=== PATIENT | female | born 1945 | race Caucasian/White ===

== ENCOUNTER → 2018-02-05 | Outpatient (CLI) | payer MEDICARE, OTHER ==
[~2018-02-05] MED LIST: ABAT250V; ABAT250V PO; DIGOXIN0.25 MG/5 PO; ESOM20 PO; HYDR1TAB94 PO; LISI20 PO; METF500 PO; METO100ER PO; Prozac20 MG PO; WARF2.5 PO
== END | disposition home or self-care (01) ==
LOC: PLD 07:12
DX: N85.8 Other specified noninflammatory disorders of uterus (principal)
CPT/HCPCS: 88305

== ENCOUNTER → 2019-07-29 | Outpatient (CLI) | payer MEDICARE, OTHER ==
[2019-07-31 15:07] LABS: HPV 16 Negative (Negative); HPV 18 Negative (Negative); HPV OTHER HR TYPES Negative (Negative)
== END | disposition home or self-care (01) ==
LOC: LAB SHORT 15:58 → LAB 15:58
PROVIDERS: Nurse Practitioner Women's Health
DX: Z12.4 Encounter for screening for malignant neoplasm of cervix (principal); Z91.89 Other specified personal risk factors, not elsewhere classified
CPT/HCPCS: 87624; G0123

== ENCOUNTER 2019-12-21 18:20 | Inpatient (IN) | payer MEDICARE, OTHER ==
[~2019-12-21] VITALS: Ht 162.6 cm; Wt 96.0 kg
[~2019-12-21 18:20] MED LIST changes: -DIGOXIN0.25 MG/5 PO; +LANOXIN125 MCG PO
[2019-12-21 19:48] LABS: BASOPHILS ABSOLUTE AUTO 0.02 K/mm3 (0.00-0.23); BASOPHILS PERCENT AUTO 0 % (0-2); EOSINOPHILS PERCENT AUTO 0 % (0-6); Hematocrit 47.7 % (33.0-51.0); IMMATURE GRAN ABSOLUTE AUTO 0.08 K/mm3 (0.00-0.10); IMMATURE GRAN PERCENT AUTO 1 % (0-1); LYMPHOCYTES ABSOLUTE AUTO 2.89 K/mm3 (0.84-5.20); LYMPHOCYTES PERCENT AUTO 19 % (21-46); MONOCYTES ABSOLUTE AUTO 1.31 K/mm3 (0.16-1.47); MONOCYTES PERCENT AUTO 9 % (4-13); Mean Corpuscular HGB 29.8 pg (26.0-34.0); Mean Corpuscular HGB Conc 31.4 g/dL (31.5-36.5); Mean Corpuscular Volume 95 fL (80-100); Mean Platelet Volume 11.2 fL (9.1-12.4); NEUTROPHILS ABSOLUTE AUTO 11.15 K/mm3 (1.96-9.15); NEUTROPHILS PERCENT AUTO 72 % (41-73); NRBC ABSOLUTE 0.13 K/mm3 (0.00-0.02); NRBC Auto 0.8 /100 WBC (0.0-0.2); Platelet Count 91 K/mm3 (150-400); RDW Coefficient Variation 18.2 % (11.7-14.2); RDW Standard Deviation 61.2 fL (35.1-46.3); Red Blood Cell Count 5.03 M/mm3 (3.80-5.20); White Blood Cell Count 15.45 K/mm3 (4.00-11.30)
[2019-12-21 20:07] LABS: Alanine Aminotransfer (ALT/SGP 430 U/L (12-78); Albumin, Blood 2.7 g/dL (3.4-5.0); Albumin/Globulin Ratio 0.9 (0.8-1.8); Alk Phos 75 U/L (50-136); Anion Gap 11 mmol/L (6-16); Bilirubin, Total 2.8 mg/dL (0.1-1.0); CO2, Blood 15 mmol/L (21-32); Calcium, Blood 6.8 mg/dL (8.5-10.1); Chloride, Blood 108 mmol/L (98-108); Creatinine, Blood 0.67 mg/dL (0.40-1.00); Free Thyroxine 1.14 ng/dL (0.70-1.60); Globulin, Blood 3.1 g/dL (2.2-4.0); Glomerular Filtration Rate >60 (60-); Glucose, Blood 109 mg/dL (70-99); Potassium, Blood 4.3 mmol/L (3.5-5.5); Sodium, Blood 134 mmol/L (136-145); Total Protein, Blood 5.8 g/dL (6.4-8.2); Troponin I <0.015 ng/mL (0.000-0.040)
[2019-12-21 20:07] LABS: Influenza A Negative (NEGATIVE); Influenza B Negative (NEGATIVE)
[2019-12-21 20:23] LABS: Aspartate Aminotrans (AST/SGOT 464 U/L (12-37); Blood Urea Nitrogen 33 mg/dL (8-24); Bun/Creatinine Ratio 49.3 (12.0-20.0); Digoxin (Lanoxin) 0.11 ug/mL (0.80-2.00); Triiodothyronine, Free 0.98 pg/mL (2.18-3.98)
[2019-12-21 21:39] LABS: Source, Urine Catheter
[2019-12-21 21:41] LABS: Blood, Urine 1+ (Neg); Glucose Qualitative, Urine Neg (Neg); Ketones, Urine 1+ (Neg); Leukocyte Esterase, Urine 1+ (Neg); Nitrite, Urine Neg (Neg); Protein, Urine 2+ (Neg); Urobilinogen, Urine 2+ (Normal)
[2019-12-21 21:46] LABS: Appearance, Urine Hazy (Clear); Bilirubin, Urine 1+ (Neg); Color, Urine Yellow (P-Yellow)
[2019-12-21 21:48] LABS: Bacteria Many /hpf; Mucus Light (0-Heavy); Squamous Epithelial Cells Few /hpf (Few)
[2019-12-21 23:21] LABS: International Normalized Ratio 1.76; Prothrombin Time Results 18.2 Sec (9.7-11.5)
--- NOTE | 2019-12-21 23:30 | NUR ---
REPORT REPORT RECEIVED FROM HARVEY BEASLEY. NURSE REPORTS PT CAME TO ER FOR C/O INCREASED WEAKNESS, FALLS, NOT EATING, INCREASED CONFUSION WHEN PT IS USUALLY INDEPENDENT. RN STATES PT IS IN CHRONIC A-FIB WITH RVR AND NEEDS DILTIAZEM WHEN AVAILABLE. PT IS ALERT, C/O COLD AND BLANKETS APPLIED. LABS AND VS REVEIWED. 2330- PT ARRIVED TO ROOM VIA CART AND TRANSFERRED TO ICU BED 3 WITH ASSIST X4 STAFF. VS OBTAINED; 148/99, 130s, RR 20, SAT 95% ON RM AIR AND TEMP LOW. ADMIT ASSESSMENT AND HX COMPLETED EXCEPT MEDS. FAMILY TO BRING LIST OR CALL PT DR. TOBIAS HAD BRIEF VISIT IN PT RM. PT RAILS UP X2, CALL LIGHT IN REACH, BED LOW FOR PT SAFETY. PT OREINTED TO RM AND SURROUNDINGS NEEDED.
[2019-12-22 04:48] LABS: BASOPHILS ABSOLUTE AUTO 0.02 K/mm3 (0.00-0.23); BASOPHILS PERCENT AUTO 0 % (0-2); EOSINOPHILS ABSOLUTE AUTO 0.01 K/mm3 (0.00-0.68); EOSINOPHILS PERCENT AUTO 0 % (0-6); Hematocrit 48.1 % (33.0-51.0); Hemoglobin 14.7 g/dL (11.5-16.0); IMMATURE GRAN ABSOLUTE AUTO 0.07 K/mm3 (0.00-0.10); IMMATURE GRAN PERCENT AUTO 1 % (0-1); LYMPHOCYTES ABSOLUTE AUTO 2.62 K/mm3 (0.84-5.20); LYMPHOCYTES PERCENT AUTO 18 % (21-46); MONOCYTES ABSOLUTE AUTO 1.69 K/mm3 (0.16-1.47); MONOCYTES PERCENT AUTO 11 % (4-13); Mean Corpuscular HGB 28.9 pg (26.0-34.0); Mean Corpuscular HGB Conc 30.6 g/dL (31.5-36.5); Mean Corpuscular Volume 95 fL (80-100); Mean Platelet Volume 11.4 fL (9.1-12.4); NEUTROPHILS ABSOLUTE AUTO 10.57 K/mm3 (1.96-9.15); NEUTROPHILS PERCENT AUTO 71 % (41-73); NRBC ABSOLUTE 0.05 K/mm3 (0.00-0.02); NRBC Auto 0.3 /100 WBC (0.0-0.2); Platelet Count 101 K/mm3 (150-400); RDW Coefficient Variation 18.5 % (11.7-14.2); RDW Standard Deviation 61.1 fL (35.1-46.3); Red Blood Cell Count 5.08 M/mm3 (3.80-5.20); White Blood Cell Count 14.98 K/mm3 (4.00-11.30)
[2019-12-22 05:00] LABS: International Normalized Ratio 1.53
[2019-12-22 05:12] LABS: Alanine Aminotransfer (ALT/SGP 395 U/L (12-78); Albumin, Blood 2.7 g/dL (3.4-5.0); Albumin/Globulin Ratio 0.9 (0.8-1.8); Alk Phos 72 U/L (50-136); Anion Gap 10 mmol/L (6-16); Aspartate Aminotrans (AST/SGOT 352 U/L (12-37); Bilirubin, Total 2.4 mg/dL (0.1-1.0); Blood Urea Nitrogen 31 mg/dL (8-24); Bun/Creatinine Ratio 35.7 (12.0-20.0); CO2, Blood 20 mmol/L (21-32); Calcium, Blood 8.2 mg/dL (8.5-10.1); Chloride, Blood 105 mmol/L (98-108); Creatinine, Blood 0.87 mg/dL (0.40-1.00); Globulin, Blood 2.9 g/dL (2.2-4.0); Glomerular Filtration Rate >60 (60-); Glucose, Blood 107 mg/dL (70-99); Potassium, Blood 4.5 mmol/L (3.5-5.5); Sodium, Blood 135 mmol/L (136-145); Total Protein, Blood 5.6 g/dL (6.4-8.2)
--- NOTE | 2019-12-22 06:41 | NUR ---
SHIFT SUMMARY PT RESTS IN BED SINCE ADMISSION. PT ALERT, FORGETFUL, C/O HIP PAIN AND NORCO GIVEN X1. HEART RATE CONTINUES IN AFIB WITH RVR 120-160s. B/P ELEVATED AND TEMP LOW ALTHOUGH UP TO 96.9 TEMPORAL THIS AM. LUNGS CLEAR, CLEAR AND DIMINISHED BASES BILAT, SAT >90% ON RM AIR. BS PRESENT, VOIDS PER BEDPAN, INCONT AT TIMES AND BRIEF IN PLACE. SKIN WITH REDNESS UNDER BREASTS AND IN SKIN FOLDS/GROIN AREA AND NYSTATIN CREAM APPLIED. PT ALSO HAS A FEW SMALL ABRASIONS/BRUISES R/T FALLS THIS PAST WEEKEND PER FAMILY REPORT. NS INFUSING AT 100CC/HR VIA LT UPPER ARM. WILL CONTINUE TO MONITOR PT. BEDSIDE REPORT WILL BE GIVEN TO DAY SHIFT RN WHEN ARRIVES.
--- NOTE | 2019-12-22 07:43 | NUR ---
START OF SHIFT NOTE: RECEIVED REPORT FROM HARVEY CENTENO, ASSUMED CARE, PATIENT IS SLEEPING BUT EASILY AROUSEABLE, ALERT AND ORIENTED BUT EASILY FORGETFUL, PATIENT STATES "I JUST WANT TO SLEEP", DENIES PAIN, AFEBRILE, LUNG SOUNDS DIMINISHED BUT CLEAR, A-FIB WITH HR IN 90'S TO BRIEF SPURTS OF 140'S, CARDIZEM DRIP OFF, SBP'S ELEVATED FROM 130'S TO 170'S, BOWEL TONES HYPOACTIVE, BG 103, PATIENT HAS EXCORIATIONS UNDER BOTH BREASTS, UNDER PANNUS FOLD AND BUTTOCK FOLD, PATIENT ALSO HAS A NERVE STIMULATOR IMPLANTED ON HER BUTTOCKS, INCONTINENT, BRIEF IN PLACE, PEDAL PULSES PALPABLE, CALL LIGHT IN REACH, WILL CONTINUE TO MONITOR.
--- NOTE | 2019-12-22 08:00 | NUR ---
SRUTHI HANKS, COMMISSARY WORKER, IN TO SEE PATIENT.
--- NOTE | 2019-12-22 08:45 | NUR ---
PATIENT IS EATING BREAKFAST INDEPENDENTLY, TOOK AM MEDICATION ONE PILL AT A TIME, NO PROBLEM SWALLOWING, PT/OT HERE TO SEE PATIENT, WILL COME BACK LATER WHEN PATIENT HAS BEEN CLEANED AND IS DONE EATING, CALL LIGHT IN REACH, WILL CONTINUE TO MONITOR.
--- NOTE | 2019-12-22 09:58 | NUR ---
PT IN TO WORK WITH PATIENT.
--- NOTE | 2019-12-22 11:20 | NUR ---
PATIENT'S SON JAZ CALLED AND WAS GIVEN AN UPDATE ON PATIENT'S CONDITION, ALL QUESTIONS WERE ANSWERED, ALL CONCERNS ADDRESSED.
--- NOTE | 2019-12-22 14:01 | NUR ---
IN TO SEE PATIENT, NO NEW ORDERS RECEIVED.
--- NOTE | 2019-12-22 17:26 | NUR ---
REPORT CALLED TO ANGELO LECHUGA RN, PCU, PATIENT WILL BE TRANSFERRED TO PCU 3 VIA HOSPITAL BED WHEN DONE EATING.
--- NOTE | 2019-12-22 17:46 | NUR ---
SHIFT SUMMARY NOTE: NO ACUE EVENTS DURING THIS SHIFT, PATIENT REMAINS AFEBRIL AND DENIES PAIN, MORE ALERT ABLE TO ALERT NURSE WHEN SHE NEEDS TO VOID, USES CALL LIGHT APPROPRIATELY, FOR DETAILS SEE SHIT ASSESSMENT DOCUMENTATION AND NURSES NOTES, CALL LIGHT IN REACH, WILL CONTINUE TO MONIOR.
--- NOTE | 2019-12-22 18:27 | NUR ---
ASSUMED CARE FROM HARVEY AYERS AFTER PT TRANSFERED FROM ICU TO PCU 3 AT 1800. PT IS A&0X3, FOLLOWS COMMANDS AND COMPLAINS OF FEELING WEEK. VITALS ARE STABLE, PT SHOWS A-FIB ON TELEMETRY RATES 70'S-80'S. PER REPORT, PT RECENTLY USED BEDPAN AND WAS CLEANED UP PRIOR TO TRANSFER. PT ARRIVED ON ROOM AIR, LUNGS ARE DIM IN THE BASES. BEDSIDE HANDOFF SHOWED PT'S EXCORIATED SKIN UNDER BREASTS AND PANUS AND WHAT TREATMENTS HAVE BEEN DONE.
--- NOTE | 2019-12-22 19:25 | NUR ---
ASSUMED CARE BEDSIDE REPORT RECIEVED. PT IS AWAKE, ALERT, AND ORIENTED. PT FLAT AND WITHDRAWN. PT ANSWERS QUESTIONS APPROPRIATELY. PT COMPLAINS OF PAIN TO HIPS AND LEGS AT THIS TIME. VITAL SIGNS STABLE. PT ON ROOM AIR. IV SALINE LOCKED. PT INCONTINENT OF URINE. ATTENDS IN PLACE. WILL CONTINUE TO MONITOR.
[2019-12-23 04:23] LABS: BASOPHILS ABSOLUTE AUTO 0.02 K/mm3 (0.00-0.23); BASOPHILS PERCENT AUTO 0 % (0-2); EOSINOPHILS ABSOLUTE AUTO 0.05 K/mm3 (0.00-0.68); EOSINOPHILS PERCENT AUTO 0 % (0-6); Hematocrit 47.6 % (33.0-51.0); Hemoglobin 14.4 g/dL (11.5-16.0); IMMATURE GRAN ABSOLUTE AUTO 0.07 K/mm3 (0.00-0.10); IMMATURE GRAN PERCENT AUTO 1 % (0-1); LYMPHOCYTES ABSOLUTE AUTO 2.47 K/mm3 (0.84-5.20); LYMPHOCYTES PERCENT AUTO 16 % (21-46); MONOCYTES ABSOLUTE AUTO 1.42 K/mm3 (0.16-1.47); MONOCYTES PERCENT AUTO 9 % (4-13); Mean Corpuscular HGB Conc 30.3 g/dL (31.5-36.5); Mean Corpuscular Volume 96 fL (80-100); Mean Platelet Volume 10.4 fL (9.1-12.4); NEUTROPHILS ABSOLUTE AUTO 11.15 K/mm3 (1.96-9.15); NEUTROPHILS PERCENT AUTO 73 % (41-73); NRBC ABSOLUTE 0.02 K/mm3 (0.00-0.02); NRBC Auto 0.1 /100 WBC (0.0-0.2); Platelet Count 102 K/mm3 (150-400); RDW Coefficient Variation 18.3 % (11.7-14.2); RDW Standard Deviation 62.2 fL (35.1-46.3); Red Blood Cell Count 4.96 M/mm3 (3.80-5.20); White Blood Cell Count 15.18 K/mm3 (4.00-11.30)
[2019-12-23 04:37] LABS: International Normalized Ratio 1.88; Prothrombin Time Results 19.4 Sec (9.7-11.5)
[2019-12-23 04:43] LABS: Anion Gap 9 mmol/L (6-16); Blood Urea Nitrogen 28 mg/dL (8-24); Bun/Creatinine Ratio 33.7 (12.0-20.0); CO2, Blood 18 mmol/L (21-32); Calcium, Blood 7.8 mg/dL (8.5-10.1); Chloride, Blood 109 mmol/L (98-108); Creatinine, Blood 0.83 mg/dL (0.40-1.00); Glomerular Filtration Rate >60 (60-); Glucose, Blood 111 mg/dL (70-99); Potassium, Blood 4.3 mmol/L (3.5-5.5); Sodium, Blood 136 mmol/L (136-145)
--- NOTE | 2019-12-23 05:44 | NUR ---
SHIFT SUMMARY NO ACUTE CHANGES THIS SHIFT. PT HAS BEEN AWAKE THROUGHOUT MOST OF THE SHIFT. PT REMAINS ALERT AND ORIENTED. PT ASSISTED WITH TURNS AND REPOSITIONING FREQUENTLY. PT MED FOR PAIN IN HIPS/LEGS/FEET PER EMAR. VITAL SIGNS HAVE REMAINED STABLE. PT ON ROOM AIR. IV SALINE LOCKED. PT WITH ATTENDS IN PLACE, NO INCONTINENT VOIDS THIS SHIFT. PT UP TO BSC TO VOID WITH 2 PERSON ASSIST. PT WITH GOOD APPETITE THROUGHOUT THE NIGHT. WILL CONTINUE TO MONITOR AND REPORT OFF TO ONCOMING RN.
--- NOTE | 2019-12-23 18:28 | NUR ---
SHIFT SUMMARY PT IS A&O, VITALS HAVE BEEN STABLE. TELEMETRY HAS SHOWN PT TO BE A-FIB 80'S-100'S. HAVE BEEN ENCOURAGING PT TO INCREASE MOVEMENT, HOWEVER PT HAS DECLINED RELATED TO CHRONIC HIP PAIN. PT MEDICATED PRN TO ASSIST WITH PAIN CONTROL. NO EPISODES OF INCONTINCE, PT HAS BEEN ABLE TO MAKE HER WISHES KNOWN TO USE THE BSC.
[2019-12-24 04:45] LABS: International Normalized Ratio 2.53; Prothrombin Time Results 25.7 Sec (9.7-11.5)
--- NOTE | 2019-12-24 07:00 | NUR ---
PT IS RESTING WITH EYES CLOSED, RESP E/U. CALL LIGHT IN REACH. BEDSIDE SHIFT REPORT RECIEVED FROM AJCOB MCQUEEN RN.
--- NOTE | 2019-12-24 07:34 | NUR ---
SHIFT SUMMARY PT ALERT; TAKES TIME TO RESPOND; C/O LEG PAIN; REPOSITIONED AND MEDICATED PER EMAR; O2 SATS >92 ON RA; DENIES CHEST PAIN; CALL LIGHT IN REACH; BED IN LOWEST POSITION; REPORT GIVEN TO DAY RN.
--- NOTE | 2019-12-24 08:30 | NUR ---
Late Entry: Patient is sitting up in bed after eating breakfast. Pt seems lethargic but awake. Pt is OX3, denies pain at this time. HR Irreg, A-Fib in the 130s, this RN to give AM meds and then reassess HR. LS dim in the bases, biox wnl on ra. BT+. PPP. PT has 1+ pitting edema to BLE. VSS. AM meds given whole with water, pt swallowed without difficulty. Patient denies other needs at this time, call light in reach. Will continue to monitor.
--- NOTE | 2019-12-24 09:33 | NUR ---
HEART CENTER STAFF TO ROOM.
[2019-12-24 09:44] LABS: BASOPHILS ABSOLUTE AUTO 0.03 K/mm3 (0.00-0.23); BASOPHILS PERCENT AUTO 0 % (0-2); EOSINOPHILS ABSOLUTE AUTO 0.08 K/mm3 (0.00-0.68); EOSINOPHILS PERCENT AUTO 1 % (0-6); Hematocrit 46.1 % (33.0-51.0); Hemoglobin 14.3 g/dL (11.5-16.0); IMMATURE GRAN ABSOLUTE AUTO 0.06 K/mm3 (0.00-0.10); IMMATURE GRAN PERCENT AUTO 0 % (0-1); LYMPHOCYTES ABSOLUTE AUTO 2.87 K/mm3 (0.84-5.20); LYMPHOCYTES PERCENT AUTO 19 % (21-46); MONOCYTES ABSOLUTE AUTO 1.34 K/mm3 (0.16-1.47); MONOCYTES PERCENT AUTO 9 % (4-13); Mean Corpuscular HGB 29.2 pg (26.0-34.0); Mean Corpuscular Volume 94 fL (80-100); Mean Platelet Volume 10.4 fL (9.1-12.4); NEUTROPHILS ABSOLUTE AUTO 11.02 K/mm3 (1.96-9.15); NEUTROPHILS PERCENT AUTO 72 % (41-73); NRBC ABSOLUTE 0.02 K/mm3 (0.00-0.02); NRBC Auto 0.1 /100 WBC (0.0-0.2); Platelet Count 126 K/mm3 (150-400); RDW Coefficient Variation 17.7 % (11.7-14.2); RDW Standard Deviation 60.7 fL (35.1-46.3)
[2019-12-24 10:11] LABS: Alanine Aminotransfer (ALT/SGP 192 U/L (12-78); Albumin, Blood 2.4 g/dL (3.4-5.0); Albumin/Globulin Ratio 0.7 (0.8-1.8); Alk Phos 80 U/L (50-136); Anion Gap 4 mmol/L (6-16); Aspartate Aminotrans (AST/SGOT 56 U/L (12-37); Bilirubin, Total 1.2 mg/dL (0.1-1.0); Blood Urea Nitrogen 27 mg/dL (8-24); Bun/Creatinine Ratio 38.2 (12.0-20.0); CO2, Blood 21 mmol/L (21-32); Calcium, Blood 7.9 mg/dL (8.5-10.1); Chloride, Blood 108 mmol/L (98-108); Creatinine, Blood 0.71 mg/dL (0.40-1.00); Globulin, Blood 3.4 g/dL (2.2-4.0); Glomerular Filtration Rate >60 (60-); Glucose, Blood 126 mg/dL (70-99); Potassium, Blood 4.5 mmol/L (3.5-5.5); Sodium, Blood 133 mmol/L (136-145); Total Protein, Blood 5.8 g/dL (6.4-8.2)
--- NOTE | 2019-12-24 15:51 | NUR ---
ASSUMED CARE: REPORT RECEIVED FROM EYAD Apodaca RN. ASSUMED CARE OF THIS PT AT APPROX 1500. ON ASSUMPTION OF CARE, PT IS RESTING QUIETLY & AWAKENS EASILY TO VERBAL STIMULI. VSS. PT HR IMPROVED, AVG 80-100 BPM NOW. PT HAS C/O L KNEE PAIN, PRN TYLENOL PER EMAR. WILL CONTINUE TO MONITOR & UPDATE NEEDED.
--- NOTE | 2019-12-24 16:03 | NUR ---
Spiritual care visit conducted. PAtient is sitting up in bed and alert. Patient tells me about her progress, about her son and his family and about the strength and purpose that she gains from them. I listen empathically, normalize patient's experience and provide a calming presence. I will continue to remain available to patient and family.
--- NOTE | 2019-12-24 16:41 | NUR ---
Echocardiogram completed.
--- NOTE | 2019-12-24 18:39 | NUR ---
SHIFT SUMMARY: NO ACUTE CHANGES SINCE ASSUMING CARE. PT REMAINS DROWSY BUT A&O. ON RA W/ O2 SATS > 92%. MONITOR SHOWS AFIB W/ HR 90-100s, BP STABLE. ATTENDS IN PLACE FOR INCONTINENCE. ECHO COMPLETED TODAY SHOWS APPROX EF OF 35%. WILL CONTINUE TO MONITOR & REPORT OFF TO ONCOMING RN.
[2019-12-25 03:07] LABS: HBSAG SCREEN Negative (Negative); HEP A AB, IGM Negative (Negative); HEP B CORE AB, IGM Negative (Negative); HEP C VIRUS AB <0.1 (0.0-0.9)
[2019-12-25 04:49] LABS: BASOPHILS ABSOLUTE AUTO 0.04 K/mm3 (0.00-0.23); BASOPHILS PERCENT AUTO 0 % (0-2); EOSINOPHILS ABSOLUTE AUTO 0.12 K/mm3 (0.00-0.68); EOSINOPHILS PERCENT AUTO 1 % (0-6); Hematocrit 42.1 % (33.0-51.0); IMMATURE GRAN ABSOLUTE AUTO 0.07 K/mm3 (0.00-0.10); IMMATURE GRAN PERCENT AUTO 1 % (0-1); LYMPHOCYTES ABSOLUTE AUTO 2.64 K/mm3 (0.84-5.20); LYMPHOCYTES PERCENT AUTO 19 % (21-46); MONOCYTES ABSOLUTE AUTO 1.43 K/mm3 (0.16-1.47); MONOCYTES PERCENT AUTO 10 % (4-13); Mean Corpuscular HGB 28.8 pg (26.0-34.0); Mean Corpuscular HGB Conc 30.9 g/dL (31.5-36.5); Mean Corpuscular Volume 93 fL (80-100); Mean Platelet Volume 9.9 fL (9.1-12.4); NEUTROPHILS ABSOLUTE AUTO 9.42 K/mm3 (1.96-9.15); NEUTROPHILS PERCENT AUTO 69 % (41-73); Platelet Count 135 K/mm3 (150-400); RDW Coefficient Variation 17.8 % (11.7-14.2); RDW Standard Deviation 60.6 fL (35.1-46.3); Red Blood Cell Count 4.51 M/mm3 (3.80-5.20); White Blood Cell Count 13.72 K/mm3 (4.00-11.30)
[2019-12-25 05:03] LABS: International Normalized Ratio 3.13; Prothrombin Time Results 31.4 Sec (9.7-11.5)
[2019-12-25 05:11] LABS: Anion Gap 7 mmol/L (6-16); Blood Urea Nitrogen 24 mg/dL (8-24); Bun/Creatinine Ratio 29.5 (12.0-20.0); CO2, Blood 20 mmol/L (21-32); Calcium, Blood 7.6 mg/dL (8.5-10.1); Chloride, Blood 107 mmol/L (98-108); Creatinine, Blood 0.81 mg/dL (0.40-1.00); Glomerular Filtration Rate >60 (60-); Glucose, Blood 113 mg/dL (70-99); Potassium, Blood 4.4 mmol/L (3.5-5.5); Sodium, Blood 134 mmol/L (136-145)
--- NOTE | 2019-12-25 06:20 | NUR ---
SHIFT SUMMARY PT ALERT; SLOW TO RESPOND W/ FLAT AFFECT; DENIES CHEST PAIN; C/O OF CHRONIC LEG PAIN; MEDICATED PER EMAR; PT STATES IT IS NOT EFFECTIVE; REPOSITIONED FREQUENTLY FOR COMFORT; PT STATES SHE IS TOO WEAK TO USE BSC IN NIGHT AND REQUESTED BEDPAN; O2 SATS >93 ON RA; DENIES NEEDS AT THIS TIME; WILL CONTINUE TO MONITOR CLOSELY UNTIL HAND OFF TO DAY SHIFT RN.
--- NOTE | 2019-12-25 19:59 | NUR ---
Assumed care Pt lethargic, oriented to person, , event; not oriented to place or president. Pt reoriented and has remained oriented to location since. Pt complains of weakness to BLE, pain to BLE. Pt up to BSC with two max assist, tolerance very poor. Pt will use bedpan for safety. Skin P/C/Dry. VSS. See shift assessment for detailed assessment. Breathing even and unlabored, RA. Repositioned q2 for comfort. Will continue to monitor.
[2019-12-26 03:30] LABS: BASOPHILS ABSOLUTE AUTO 0.05 K/mm3 (0.00-0.23); BASOPHILS PERCENT AUTO 0 % (0-2); EOSINOPHILS ABSOLUTE AUTO 0.05 K/mm3 (0.00-0.68); EOSINOPHILS PERCENT AUTO 0 % (0-6); Hematocrit 44.4 % (33.0-51.0); Hemoglobin 13.6 g/dL (11.5-16.0); IMMATURE GRAN ABSOLUTE AUTO 0.04 K/mm3 (0.00-0.10); IMMATURE GRAN PERCENT AUTO 0 % (0-1); LYMPHOCYTES ABSOLUTE AUTO 1.82 K/mm3 (0.84-5.20); LYMPHOCYTES PERCENT AUTO 15 % (21-46); MONOCYTES ABSOLUTE AUTO 1.36 K/mm3 (0.16-1.47); MONOCYTES PERCENT AUTO 12 % (4-13); Mean Corpuscular HGB 28.9 pg (26.0-34.0); Mean Corpuscular HGB Conc 30.6 g/dL (31.5-36.5); Mean Corpuscular Volume 94 fL (80-100); Mean Platelet Volume 9.9 fL (9.1-12.4); NEUTROPHILS ABSOLUTE AUTO 8.53 K/mm3 (1.96-9.15); NEUTROPHILS PERCENT AUTO 72 % (41-73); Platelet Count 156 K/mm3 (150-400); RDW Coefficient Variation 17.8 % (11.7-14.2); RDW Standard Deviation 61.2 fL (35.1-46.3); Red Blood Cell Count 4.71 M/mm3 (3.80-5.20); White Blood Cell Count 11.85 K/mm3 (4.00-11.30)
[2019-12-26 03:45] LABS: International Normalized Ratio 2.52; Prothrombin Time Results 25.6 Sec (9.7-11.5)
[2019-12-26 03:46] LABS: Anion Gap 7 mmol/L (6-16); Blood Urea Nitrogen 22 mg/dL (8-24); CO2, Blood 20 mmol/L (21-32); Calcium, Blood 8.1 mg/dL (8.5-10.1); Chloride, Blood 105 mmol/L (98-108); Creatinine, Blood 0.63 mg/dL (0.40-1.00); Glomerular Filtration Rate >60 (60-); Glucose, Blood 97 mg/dL (70-99); Potassium, Blood 4.7 mmol/L (3.5-5.5); Sodium, Blood 132 mmol/L (136-145)
--- NOTE | 2019-12-26 05:43 | NUR ---
Shift Summary Pt with improved mentation overnight. At start of shift, pt lethargic. Pt more alert and answering questions appropriately. Pt repositioned q2 for comfort. Attends in place, dry at this time. Incontinent of bladder. Pt medicated for pain, BLE elevated. Pt takes pills whole with water, one at a time. VSS this shift. No changes in oxygen demand. Pt with no acute declines overnight. No acute concerns to note. Will continue to monitor until day RN assumes care.
[2019-12-26 14:54] LABS: International Normalized Ratio 2.21
[2019-12-26 15:22] LABS: Prothrombin Time Results 22.6 Sec (9.7-11.5)
--- NOTE | 2019-12-26 16:20 | NUR ---
TRANSFER TO [facility]: REPORT GIVEN RN. TRANSFER TO [facility] FLOOR AT THIS TIME. NO ACUTE DISTRESS AT THIS TIME.
--- NOTE | 2019-12-26 17:02 | NUR ---
PT TRANSFERED. PT TRANSFERED AT 1650. PT ORIENTED TO ROOM. CALL LIGHT GIVEN TO PT. PT STATES CHRONIC PAIN IN BACK AND LEGS. LS DIM T/O. BSX4. HS IRREGULAR. TELE RUNNING AFIB 70-80S. WILL CONTINUE TO MONITOR UNTIL TURNOVER IS COMPLETE.
[2019-12-26 21:11] LABS: Digoxin (Lanoxin) 1.52 ug/mL (0.80-2.00)
[2019-12-27 05:36] LABS: BASOPHILS ABSOLUTE AUTO 0.03 K/mm3 (0.00-0.23); BASOPHILS PERCENT AUTO 0 % (0-2); EOSINOPHILS ABSOLUTE AUTO 0.04 K/mm3 (0.00-0.68); EOSINOPHILS PERCENT AUTO 0 % (0-6); Hematocrit 43.1 % (33.0-51.0); Hemoglobin 13.5 g/dL (11.5-16.0); IMMATURE GRAN ABSOLUTE AUTO 0.05 K/mm3 (0.00-0.10); IMMATURE GRAN PERCENT AUTO 1 % (0-1); LYMPHOCYTES ABSOLUTE AUTO 1.71 K/mm3 (0.84-5.20); LYMPHOCYTES PERCENT AUTO 16 % (21-46); MONOCYTES PERCENT AUTO 12 % (4-13); Mean Corpuscular HGB 29.1 pg (26.0-34.0); Mean Corpuscular HGB Conc 31.3 g/dL (31.5-36.5); Mean Corpuscular Volume 93 fL (80-100); Mean Platelet Volume 10.4 fL (9.1-12.4); NEUTROPHILS ABSOLUTE AUTO 7.76 K/mm3 (1.96-9.15); NEUTROPHILS PERCENT AUTO 71 % (41-73); Platelet Count 202 K/mm3 (150-400); RDW Coefficient Variation 17.6 % (11.7-14.2); RDW Standard Deviation 59.7 fL (35.1-46.3); Red Blood Cell Count 4.64 M/mm3 (3.80-5.20); White Blood Cell Count 10.89 K/mm3 (4.00-11.30)
[2019-12-27 06:02] LABS: Anion Gap 8 mmol/L (6-16); Blood Urea Nitrogen 22 mg/dL (8-24); Bun/Creatinine Ratio 38.2 (12.0-20.0); CO2, Blood 20 mmol/L (21-32); Calcium, Blood 8.1 mg/dL (8.5-10.1); Chloride, Blood 101 mmol/L (98-108); Creatinine, Blood 0.58 mg/dL (0.40-1.00); Glomerular Filtration Rate >60 (60-); Glucose, Blood 145 mg/dL (70-99); Potassium, Blood 4.8 mmol/L (3.5-5.5); Sodium, Blood 129 mmol/L (136-145)
--- NOTE | 2019-12-27 08:11 | NUR ---
SHIFT SUMMARY: PATIENT IS A&O X3, REPORTING BILATERAL LE PAIN AND DOES HAVE A HISTORY OF NEUROPATHY, NEURONTIN WAS GIVEN AT HS AND PATIENT REFUSES ANY PRN PAIN MEDICATIONS THAT WERE OFFERED. BP IS STABLE BUT ELEVATED, NO COMPLAINTS OF HEAD ACHE. PATIENT IS INC. AT TIMES AND ALSO ASKS FOR BED FERGUSON AT TIMES. ABLE TO USED BEDPAN FOR A MEDIUM BROWN FORMED BM. BED ALARM IS ON AND CALL FIELDS IS WITH IN REACH, FOR SAFETY.
[2019-12-27 13:30] LABS: International Normalized Ratio 1.88; Prothrombin Time Results 19.4 Sec (9.7-11.5)
[2019-12-27] MEDS ORDERED: SIMV10 PO (16:21)
--- NOTE | 2019-12-27 16:46 | NUR ---
SHIFT SUMMARY- PT A/O PLESANT AND COOPERATIVE. PT COMPLAINS OF BILATERAL LEG PAIN. SHE IS BEING MEDICATED PER MAR. PT RECIEVED A VENOUS DUPLEX PREFORMED AND DVT WERE FOUND BILATERALLY. STARTED ON HEPRIN DRIP. PT WILL GO TOMORROW FOR CORONARY ANGIOGRAPHY. PT HAD AN INCONTINENT VOID AND HER BEDDING WAS CHANGED. PT TO BEDSIDE COMMODE FOR BM. SHE IS SLEEPING INTERMITENTLY THROUGH THIS SHIFT.
--- NOTE | 2019-12-28 03:51 | NUR ---
SHIFT SUMMARY: PATIENT DROWSEY ALL SHIFT BUT DOES AWAKEN SPONTANEOUSLY AND ANSWER QUESTIONS APPROPRIATLY. NPO SINCE 000 FOR POSSIBLE ANGIO THIS AM STRICKLAND CATHETER PLACED PER MD ORDERS, SKIN CARE COMPLETED OFTEN EGG CRATE FOAM PLACED TO PROTECT SKIN VSS, CALL LIGHT WITHIN REACH, BED LOW AND LOCKED
[2019-12-28 05:48] LABS: Anion Gap 8 mmol/L (6-16); Blood Urea Nitrogen 24 mg/dL (8-24); Bun/Creatinine Ratio 39.2 (12.0-20.0); CO2, Blood 23 mmol/L (21-32); Chloride, Blood 102 mmol/L (98-108); Creatinine, Blood 0.61 mg/dL (0.40-1.00); Glomerular Filtration Rate >60 (60-); Glucose, Blood 122 mg/dL (70-99); Potassium, Blood 4.7 mmol/L (3.5-5.5); Sodium, Blood 133 mmol/L (136-145)
[2019-12-28 12:14] LABS: International Normalized Ratio 1.82; Prothrombin Time Results 18.8 Sec (9.7-11.5)
--- NOTE | 2019-12-28 13:38 | NUR ---
CALLED ABOUT; MIDSTERNAL C.P., NONRADIATING, NO N/D AND NOT DIAPHORETIC. FEELS "LIKE A BUBBLE". DENIES GAS LIKE FEELING. EKG DONE. NITRO ORDERED AND ONE GIVEN. PAIN WAS 10 AND BEFORE NTG 8(1-10). PAGED W/MULTIPLE SPINDLE SCREW MACHINE OPERATOR NOTIFIED. [facility].
--- NOTE | 2019-12-28 13:45 | NUR ---
IN ROOM. PATIENT STS BETTER-BUBBLE GONE- 8(1-10) STILL. NOW STS FEELS LIKE INDEGESTION. HAD DENIED THIS EARLIER.
--- NOTE | 2019-12-28 14:29 | NUR ---
DR. FREIRE NOTIFIED OF NEW NUMBER FOR SON [phone] AND THAT WOULD LIKE ANGIO DONE SOMETIME DURING THIS ADMIT.
--- NOTE | 2019-12-28 15:25 | NUR ---
pt resting left advance directive information will return to review with pt.
--- NOTE | 2019-12-28 18:05 | NUR ---
ALERT. PLEASANT. DROWSEY MOST OF DAY. POSSIBLE ANGIO ON SATURDAY. FEELS BETTER AFTER MIDSTERNAL C.P. SAW; PATIENT& EKG AND DISCUSSED WITH SON ABOUT ANGIO. TELE ON- AFIB W/HX OF. BRIJESH.
--- NOTE | 2019-12-29 02:08 | NUR ---
PT REMAINS ON HEPARIN DRIP, INTERMITTENTLY BENDING ARM AND NEEDING IT REPOSITIONED FOR BETTER MED FLOW. ORIENTED TO SELF. NO COMPLANTS OF CHEST PAIN OF THIS WRITING. STRICKLAND DRAINING YELLOW. SEE MAR FOR HEPARIN DOSAGE/CHANGES. CALL LIGHT IN REACH. WILL CONTINUE TO MONITOR..
[2019-12-29 08:23] LABS: BASOPHILS ABSOLUTE AUTO 0.04 K/mm3 (0.00-0.23); BASOPHILS PERCENT AUTO 1 % (0-2); EOSINOPHILS ABSOLUTE AUTO 0.03 K/mm3 (0.00-0.68); EOSINOPHILS PERCENT AUTO 0 % (0-6); Hematocrit 42.9 % (33.0-51.0); Hemoglobin 13.6 g/dL (11.5-16.0); IMMATURE GRAN ABSOLUTE AUTO 0.04 K/mm3 (0.00-0.10); IMMATURE GRAN PERCENT AUTO 1 % (0-1); LYMPHOCYTES ABSOLUTE AUTO 2.46 K/mm3 (0.84-5.20); LYMPHOCYTES PERCENT AUTO 29 % (21-46); MONOCYTES ABSOLUTE AUTO 1.23 K/mm3 (0.16-1.47); MONOCYTES PERCENT AUTO 14 % (4-13); Mean Corpuscular HGB 28.9 pg (26.0-34.0); Mean Corpuscular HGB Conc 31.7 g/dL (31.5-36.5); Mean Corpuscular Volume 91 fL (80-100); Mean Platelet Volume 10.2 fL (9.1-12.4); NEUTROPHILS ABSOLUTE AUTO 4.75 K/mm3 (1.96-9.15); NEUTROPHILS PERCENT AUTO 55 % (41-73); Platelet Count 263 K/mm3 (150-400); RDW Coefficient Variation 17.5 % (11.7-14.2); RDW Standard Deviation 58.4 fL (35.1-46.3); Red Blood Cell Count 4.71 M/mm3 (3.80-5.20); White Blood Cell Count 8.55 K/mm3 (4.00-11.30)
[2019-12-29 08:31] LABS: International Normalized Ratio 1.6; Prothrombin Time Results 16.7 Sec (9.7-11.5)
[2019-12-29 08:33] LABS: Alanine Aminotransfer (ALT/SGP 79 U/L (12-78); Albumin, Blood 1.9 g/dL (3.4-5.0); Albumin/Globulin Ratio 0.5 (0.8-1.8); Alk Phos 134 U/L (50-136); Anion Gap 5 mmol/L (6-16); Aspartate Aminotrans (AST/SGOT 43 U/L (12-37); Bilirubin, Total 1.3 mg/dL (0.1-1.0); Blood Urea Nitrogen 20 mg/dL (8-24); Bun/Creatinine Ratio 33.3 (12.0-20.0); CO2, Blood 28 mmol/L (21-32); Calcium, Blood 8.3 mg/dL (8.5-10.1); Chloride, Blood 101 mmol/L (98-108); Globulin, Blood 4.1 g/dL (2.2-4.0); Glomerular Filtration Rate >60 (60-); Glucose, Blood 106 mg/dL (70-99); Potassium, Blood 4.3 mmol/L (3.5-5.5); Sodium, Blood 134 mmol/L (136-145)
--- NOTE | 2019-12-29 17:39 | NUR ---
ALERT. ORIENTED TO PERSON, PLACE AND FAMILY. OOB TO CHAIR WITH MAX 2 PERSON ASSIST. SON HAS BEEN IN AND STS HE WILL KEEP HIS CELL PHONE ON HIM AWAITING CALL BACK FROM WASTEWATER TREATMENT PLANT SUPERVISOR. RN DISCUSSED POSSIBLE ANGIOGRAM AND SON, JAZ, STS WHATEVER NEEDS TO BE DONE HE IS OK WITH. SON AWARE THERE ARE RISKS WITH PROCEDURE. PATIENT DROWSEY MOST OF DAY. MEDICATED FOR LEG PAIN AND STS IT DID NOT HELP, BUT FALLS ASLEEP. ASKED IF SHE NEEDS MORE PAIN MEDS "NO." TELE ON RUNNING AFIB. BED ALARM ON. WCTM.
[2019-12-30 05:39] LABS: BASOPHILS ABSOLUTE AUTO 0.05 K/mm3 (0.00-0.23); BASOPHILS PERCENT AUTO 1 % (0-2); EOSINOPHILS ABSOLUTE AUTO 0.03 K/mm3 (0.00-0.68); EOSINOPHILS PERCENT AUTO 0 % (0-6); Hematocrit 43.5 % (33.0-51.0); Hemoglobin 13.4 g/dL (11.5-16.0); IMMATURE GRAN ABSOLUTE AUTO 0.04 K/mm3 (0.00-0.10); IMMATURE GRAN PERCENT AUTO 1 % (0-1); LYMPHOCYTES ABSOLUTE AUTO 2.52 K/mm3 (0.84-5.20); LYMPHOCYTES PERCENT AUTO 31 % (21-46); MONOCYTES ABSOLUTE AUTO 1.14 K/mm3 (0.16-1.47); MONOCYTES PERCENT AUTO 14 % (4-13); Mean Corpuscular HGB Conc 30.8 g/dL (31.5-36.5); Mean Corpuscular Volume 91 fL (80-100); Mean Platelet Volume 9.7 fL (9.1-12.4); NEUTROPHILS ABSOLUTE AUTO 4.26 K/mm3 (1.96-9.15); NEUTROPHILS PERCENT AUTO 53 % (41-73); Platelet Count 299 K/mm3 (150-400); RDW Coefficient Variation 17.2 % (11.7-14.2); RDW Standard Deviation 57.6 fL (35.1-46.3); Red Blood Cell Count 4.79 M/mm3 (3.80-5.20); White Blood Cell Count 8.04 K/mm3 (4.00-11.30)
[2019-12-30 05:53] LABS: International Normalized Ratio 1.38; Prothrombin Time Results 14.5 Sec (9.7-11.5)
[2019-12-30 05:57] LABS: Anion Gap 4 mmol/L (6-16); Blood Urea Nitrogen 23 mg/dL (8-24); Bun/Creatinine Ratio 46.7 (12.0-20.0); CO2, Blood 29 mmol/L (21-32); Calcium, Blood 8.5 mg/dL (8.5-10.1); Chloride, Blood 101 mmol/L (98-108); Creatinine, Blood 0.49 mg/dL (0.40-1.00); Glomerular Filtration Rate >60 (60-); Glucose, Blood 109 mg/dL (70-99); Potassium, Blood 4.3 mmol/L (3.5-5.5); Sodium, Blood 134 mmol/L (136-145)
--- NOTE | 2019-12-30 07:22 | NUR ---
SHIFT SUMMARY AOX3-UNAWARE DATE, COULD STATE THE MONTH. VERY DROWSY, YET WAKES TO ANSWER QUESTIONS & FOLLOWS DIRECTIONS. VSS. TELE RUNNING A. FIB HR 70'S. DENIES N/V OR DYSPNEA. REPORTS PAIN IN BLE/FEET STATES 07/04, MEDICATED 2X W/NORCO PER ORDERS. RLE +2 EDEMA, LLE +1 EDEMA. REPORTS SHE LIKES HER MEDS IN APPLESAUCE. MARCO A IS PATENT & DRAINING. HEPARIN DRIP RUNNING 15.5 U/KG/HR. CALL LIGHT IN REACH.
--- NOTE | 2019-12-30 13:26 | NUR ---
Patient off unit to [facility] for procedure. Report called to TON Last,RN.
--- NOTE | 2019-12-30 16:49 | NUR ---
PT NOTE... PT ARRIVED TO UNIT AT 1515. PT IS S/P ANGIO AND IS TO [facility] TRANSFER TO [facility]. PT HAS RIGHT RADIAL SITE WITH TR BAND. SITE IS INTACT, NO BLEEDING SWELLING OR HEMATOMA NOTED. PT HAS GOOD FEELING, NO NUMB/TINGLING IN THE RIGHT HAND. PT'S VS STABLE EXCEPT HER BP, PT IS HYPERTENSIVE, PT IS MEDICATED PER EMAR. PT DENIES CHEST PAIN/PRESSURE N/V OR SOB. PT IS ON RA. HEPARIN GTT STARTED AGAIN PER VERBAL ORDERS FROM AERONAUTICAL ENGINEERING TEACHER. PT IS TRANSPORTED VIA AMBULACE AT 1630.
== END 2019-12-30 16:37 | disposition short-term general hospital (02) | DRG 866 ==
LOC: ER 18:20 → ICUE 22:09 → MEDS 22:09 → PCU 22:09 → ICUE 22:56 → PCU 12-22 18:01 → MEDS 12-26 16:58 → PCU 12-30 13:11
PROVIDERS: Emergency Medicine; Family Medicine; Internal Medicine; Internal Medicine Interventional Cardiology; Student in an Organized Health Care Education/Training Program; ADMIT Internal Medicine
PROC: 4A023N8 Measurement of Cardiac Sampling and Pressure, Bilateral, Percutaneous Approach (ICD-10-PCS; principal; 2019-12-30)
PROC: B2111ZZ Fluoroscopy of Multiple Coronary Arteries using Low Osmolar Contrast (ICD-10-PCS; 2019-12-30)
PROC: 4A1239Z Monitoring of Cardiac Output, Percutaneous Approach (ICD-10-PCS; 2019-12-30)
DX: B34.9 Viral infection, unspecified (principal); I48.21 Permanent atrial fibrillation; N39.0 Urinary tract infection, site not specified; E87.1 Hypo-osmolality and hyponatremia; Z79.01 Long term (current) use of anticoagulants; G40.909 Epilepsy, unspecified, not intractable, without status epilepticus; G47.33 Obstructive sleep apnea (adult) (pediatric); J45.909 Unspecified asthma, uncomplicated; I10 Essential (primary) hypertension; I08.3 Combined rheumatic disorders of mitral, aortic and tricuspid valves; I25.5 Ischemic cardiomyopathy; E11.42 Type 2 diabetes mellitus with diabetic polyneuropathy; K75.81 Nonalcoholic steatohepatitis (NASH)
CPT/HCPCS: 36415; 71046; 73522; 76705; 80048; 80053; 80074; 80162; 81001; 82550; 82947; 83605; 83880; 84439; 84443; 84481; 84484; 85025; 85347; 85610; 85651; 85730; 87040; 87086; 87804; 90686; 93005; 93010; 93306; 93453; 93970; 94762; 96365; 96375; 96376; 97110; 97162; 97166; 97530; 99152; 99153; 99285-25; A9270; A9270-GY; C1769; C1887; C1894; G0008; J0696; J1160; J1250; J1644; J1940; J2250; J3010; J7030; J7040; J7050; P9612; Q9967

== ENCOUNTER → 2021-01-16 | Outpatient (CLI) | payer MEDICARE, OTHER ==
[~2021-01-16] MED LIST changes: +SIMV10 PO
== END | disposition home or self-care (01) ==
LOC: LAB SHORT 10:50 → PLD 10:50
DX: C44.1292 Squamous cell carcinoma of skin of left lower eyelid, including canthus (principal); C44.1291 Squamous cell carcinoma of skin of left upper eyelid, including canthus
CPT/HCPCS: 88305

== ENCOUNTER 2021-08-08 18:12 | Emergency (ER) | payer MEDICARE, OTHER ==
[~2021-08-08] VITALS: Ht 162.6 cm; Wt 80.7 kg
[2021-08-08 18:48] LABS: BASOPHILS ABSOLUTE AUTO 0.03 K/mm3 (0.00-0.23); BASOPHILS PERCENT AUTO 0 % (0-2); EOSINOPHILS ABSOLUTE AUTO 0.01 K/mm3 (0.00-0.68); EOSINOPHILS PERCENT AUTO 0 % (0-6); Hematocrit 45.9 % (33.0-51.0); Hemoglobin 15.5 g/dL (11.5-16.0); IMMATURE GRAN ABSOLUTE AUTO 0.01 K/mm3 (0.00-0.10); IMMATURE GRAN PERCENT AUTO 0 % (0-1); LYMPHOCYTES ABSOLUTE AUTO 2.76 K/mm3 (0.84-5.20); LYMPHOCYTES PERCENT AUTO 35 % (21-46); MONOCYTES ABSOLUTE AUTO 0.91 K/mm3 (0.16-1.47); MONOCYTES PERCENT AUTO 12 % (4-13); Mean Corpuscular HGB Conc 33.8 g/dL (31.5-36.5); Mean Corpuscular Volume 86 fL (80-100); Mean Platelet Volume 11.1 fL (9.1-12.4); NEUTROPHILS ABSOLUTE AUTO 4.19 K/mm3 (1.96-9.15); NEUTROPHILS PERCENT AUTO 53 % (41-73); Platelet Count 165 K/mm3 (150-400); RDW Coefficient Variation 14.6 % (11.7-14.2); RDW Standard Deviation 46.7 fL (35.1-46.3); Red Blood Cell Count 5.34 M/mm3 (3.80-5.20); White Blood Cell Count 7.91 K/mm3 (4.00-11.30)
[2021-08-08 19:02] LABS: Alanine Aminotransfer (ALT/SGP 32 U/L (12-78); Albumin/Globulin Ratio 0.8 (0.8-1.8); Alk Phos 75 U/L (50-136); Anion Gap 11 mmol/L (6-16); Aspartate Aminotrans (AST/SGOT 33 U/L (12-37); Bilirubin, Total 0.9 mg/dL (0.1-1.0); Blood Urea Nitrogen 15 mg/dL (8-24); Bun/Creatinine Ratio 14.9 (12.0-20.0); CO2, Blood 23 mmol/L (21-32); Calcium, Blood 8.8 mg/dL (8.5-10.1); Chloride, Blood 106 mmol/L (98-108); Creatinine, Blood 1.01 mg/dL (0.40-1.00); Globulin, Blood 3.8 g/dL (2.2-4.0); Glomerular Filtration Rate 53 (60-); Glucose, Blood 133 mg/dL (70-99); Potassium, Blood 3.8 mmol/L (3.5-5.5); Sodium, Blood 140 mmol/L (136-145); Total Protein, Blood 6.8 g/dL (6.4-8.2); Troponin I <0.015 ng/mL (0.000-0.040)
[2021-08-08 21:17] LABS: SARS-Cov-2 (COVID-19) PCR, MMC POSITIVE (NEGATIVE)
== END 2021-08-09 00:58 | disposition home or self-care (01) ==
LOC: ER 18:12
PROVIDERS: Physician Assistant
DX: U07.1 COVID-19 (principal); E86.0 Dehydration; I48.91 Unspecified atrial fibrillation; Z88.5 Allergy status to narcotic agent; Z79.899 Other long term (current) drug therapy; Z79.84 Long term (current) use of oral hypoglycemic drugs; Z79.01 Long term (current) use of anticoagulants
CPT/HCPCS: 36415; 71045; 80053; 84484; 85025; 93005; 93010; 99285-25; U0004

== ENCOUNTER 2023-12-27 07:04 | Day surgery (SDC) | payer MEDICARE, OTHER ==
[~2023-12-27] VITALS: Ht 162.6 cm; Wt 76.0 kg
[2023-12-27] VITALS (13 sets, daily range): BP systolic 140–181; BP diastolic 55–92
[~2023-12-27 07:04] MED LIST changes: +AMOCLA875 PO; +ATOR40TA PO; +Aspirin325 MG PO; +DRIZALMA SPRINK20 MG PO; +FURO20 PO; +GABA300 PO; +JANTOVEN5 M2 PO; +Lopressor 25 mg25 MG PO; +ONDA4ODT MM; +Vitamin D1000 UNI1
[2023-12-27 08:17] LABS: BASOPHILS ABSOLUTE AUTO 0.07 K/mm3 (0.00-0.23); BASOPHILS PERCENT AUTO 1 % (0-2); EOSINOPHILS ABSOLUTE AUTO 0.07 K/mm3 (0.00-0.68); EOSINOPHILS PERCENT AUTO 1 % (0-6); Hematocrit 40.5 % (33.0-51.0); Hemoglobin 13.1 g/dL (11.5-16.0); IMMATURE GRAN ABSOLUTE AUTO 0.05 K/mm3 (0.00-0.10); IMMATURE GRAN PERCENT AUTO 0 % (0-1); LYMPHOCYTES ABSOLUTE AUTO 3.66 K/mm3 (0.84-5.20); LYMPHOCYTES PERCENT AUTO 32 % (21-46); MONOCYTES ABSOLUTE AUTO 1.06 K/mm3 (0.16-1.47); MONOCYTES PERCENT AUTO 9 % (4-13); Mean Corpuscular HGB Conc 32.3 g/dL (31.5-36.5); Mean Corpuscular Volume 90 fL (80-100); NEUTROPHILS ABSOLUTE AUTO 6.42 K/mm3 (1.96-9.15); NEUTROPHILS PERCENT AUTO 57 % (41-73); Platelet Count 162 K/mm3 (150-400); RDW Standard Deviation 48.9 fL (35.1-46.3); Red Blood Cell Count 4.52 M/mm3 (3.80-5.20); White Blood Cell Count 11.33 K/mm3 (4.00-11.30)
[2023-12-27 08:31] LABS: International Normalized Ratio 2.06; Prothrombin Time Results 20.8 Sec (9.7-11.5)
[2023-12-27 08:44] LABS: Bun/Creatinine Ratio 34.5 (12.0-20.0); Calcium, Blood 8.8 mg/dL (8.5-10.1); Creatinine, Blood 0.84 mg/dL (0.40-1.00); Potassium, Blood 3.9 mmol/L (3.5-5.5)
--- NOTE | 2023-12-27 10:06 | NUR ---
PT IN RECOVERY RESTING IN BED. SON CALLED. SITE SOFT AND NON-TENDER PER PT. NO BLEEDING NOTED.
--- NOTE | 2023-12-27 10:13 | NUR ---
DR THOMAS AT BEDSIDE DISCUSSING PLAN OF CARE W/ PT.
--- NOTE | 2023-12-27 11:55 | NUR ---
2cc removed from tr band. site soft and non-tender per pt. no bleeding noted.
--- NOTE | 2023-12-27 11:55 | NUR ---
pt given lunch tray. pt sitting up eating.
--- NOTE | 2023-12-27 12:01 | NUR ---
2CC REMOVED FROM TR BAND. SITE SOFT AND NON-TENDER. NO BLEEDING NOTED.
--- NOTE | 2023-12-27 12:42 | NUR ---
TR BAND FULLY DEFLATED AT 1220. SITE SOFT AND NON-TENDER PER PT. NO BLEEDING NOTED.
--- NOTE | 2023-12-27 13:36 | NUR ---
PT AND SON GIVEN DC INSTRUCTIONS AND VERBALIZED UNDERSTANDING. IV OUT. CLOTH DOT, ARM BOARD, AND SLING APPLIED TO RADIAL SITE. SITE SOFT AND NON-TENDER PER PT. NO BLEEDING NOTED. PT CHANGED AND AMBULATED TO RESTROOM WITH MINIMAL ASSISTANCE. PT TAKEN TO PARKING LOT VIA AND LOADED INTO [employer] TRUCK.
== END 2023-12-27 13:00 | disposition home or self-care (01) ==
LOC: MHTC 07:04
PROVIDERS: Internal Medicine Cardiovascular Disease
DX: I35.0 Nonrheumatic aortic (valve) stenosis (principal); I25.10 Atherosclerotic heart disease of native coronary artery without angina pectoris; G43.909 Migraine, unspecified, not intractable, without status migrainosus; J45.909 Unspecified asthma, uncomplicated; E78.5 Hyperlipidemia, unspecified; G47.33 Obstructive sleep apnea (adult) (pediatric); E11.22 Type 2 diabetes mellitus with diabetic chronic kidney disease; I12.9 Hypertensive chronic kidney disease with stage 1 through stage 4 chronic kidney disease, or unspecified chronic kidney disease; N18.9 Chronic kidney disease, unspecified; I48.91 Unspecified atrial fibrillation; I25.2 Old myocardial infarction; E55.9 Vitamin D deficiency, unspecified; Z79.82 Long term (current) use of aspirin; Z88.5 Allergy status to narcotic agent; Z79.899 Other long term (current) drug therapy; Z99.89 Dependence on other enabling machines and devices
CPT/HCPCS: 76937; 80048; 85025; 85610; 93454; 99152; A9270; C1769; C1894; J1644; J2250; J3010; J7030; J7050; Q9967

== ENCOUNTER → 2025-10-26 | Outpatient (CLI) | payer MEDICARE, OTHER ==
[2025-10-26 20:50] LABS: BASOPHILS ABSOLUTE AUTO 0.06 K/mm3 (0.00-0.23); BASOPHILS PERCENT AUTO 1 % (0-2); EOSINOPHILS ABSOLUTE AUTO 0.03 K/mm3 (0.00-0.68); EOSINOPHILS PERCENT AUTO 0 % (0-6); Hematocrit 43.4 % (33.0-51.0); Hemoglobin 14.4 g/dL (11.5-16.0); IMMATURE GRAN ABSOLUTE AUTO 0.02 K/mm3 (0.00-0.10); IMMATURE GRAN PERCENT AUTO 0 % (0-1); LYMPHOCYTES ABSOLUTE AUTO 4.73 K/mm3 (0.84-5.20); LYMPHOCYTES PERCENT AUTO 40 % (21-46); MONOCYTES ABSOLUTE AUTO 1.10 K/mm3 (0.16-1.47); MONOCYTES PERCENT AUTO 9 % (4-13); Mean Corpuscular HGB Conc 33.2 g/dL (31.5-36.5); Mean Corpuscular Volume 88 fL (80-100); NEUTROPHILS ABSOLUTE AUTO 5.82 K/mm3 (1.96-9.15); NEUTROPHILS PERCENT AUTO 49 % (41-73); NRBC ABSOLUTE 0.00 K/mm3 (0.00-0.02); NRBC Auto 0.0 /100 WBC (0.0-0.2); Platelet Count 187 K/mm3 (150-400); RDW Coefficient Variation 17.1 % (11.7-14.2); RDW Standard Deviation 55.0 fL (35.1-46.3)
[2025-10-26 21:06] LABS: Alanine Aminotransfer (ALT/SGP 34.0 U/L (12-78); Albumin, Blood 3.8 g/dL (3.4-5.0); Albumin/Globulin Ratio 1.1 (0.8-1.8); Anion Gap 10.0 mmol/L (3-11); Aspartate Aminotrans (AST/SGOT 24.0 U/L (12-37); Bilirubin, Total 0.8 mg/dL (0.1-1.0); Blood Urea Nitrogen 41.0 mg/dL (8-24); CO2, Blood 27.0 mmol/L (21-32); Calcium, Blood 9.4 mg/dL (8.5-10.1); Chloride, Blood 105.0 mmol/L (98-108); Creatinine, Blood 1.23 mg/dL (0.40-1.00); Globulin, Blood 3.4 g/dL (2.2-4.0); Glucose, Blood 102.0 mg/dL (70-99); Potassium, Blood 3.7 mmol/L (3.5-5.5); Sodium, Blood 138.0 mmol/L (136-145); Total Protein, Blood 7.2 g/dL (6.4-8.2)
== END | disposition home or self-care (01) ==
LOC: LAB 19:29 → LAB SHORT 19:29
PROVIDERS: Physician Assistant Medical
DX: N39.3 Stress incontinence (female) (male) (principal); R30.0 Dysuria
CPT/HCPCS: 80053; 85025; 87086